=== PATIENT | female | born 1955 | race Caucasian/White ===

== ENCOUNTER → 2019-07-31 | Outpatient (CLI) | payer OTHER | LOC: RAD 13:11 | DX: R22.1 Localized swelling, mass and lump, neck (principal) ==

== ENCOUNTER → 2019-08-07 | Outpatient (CLI) | payer BC, OTHER ==
--- NOTE | 2019-08-21 16:07 | PATH ---
[facility] [place] [address] PATHOLOGY RPT PROCEDURE Name: BARBI HUNT Room #: REG [facility] M..#: [id number] Admission: 08/07/19 Date of : 59 Discharge: Report #: [id number] Path Case #: [id number] [facility] Accession Number: [id number] . 01 Material submitted: . neck - LEFT NECK MASS. Modifiers: left . 02 Diagnosis: Special studies report received from [facility], [address] [place] [address], [address], [place], [address], on case [id number], labeled with their number [id number], dated 08/13/2019. . Flow Cytometry: Hematologic Neoplasia Assessment . Clinical History Neck mass . Indication for Study Evaluation for hematolymphoid neoplasia . Specimen Tissue, Neck, mass . Viability 72% (7AAD exclusion) . Interpretation Tissue, Neck, mass: - No immunophenotypic evidence of a non Hodgkin B-cell or a T-cell lymphoma. See comments. - Increased T cells CD4:CD8 ratio (15.8:1) . Comments An elevated CD4:CD8 ratio is a nonspecific finding and has been reported in the literature to be associated with Hodgkin lymphoma (HL), some T-cell lymphoproliferative disorders and some reactive process. The morphologic findings are more relevant than the sole flow cytometric finding of an elevated CD4:CD8 ratio. Hodgkin lymphoma, some large cell lymphomas and some peripheral T-cell lymphomas cannot be categorically excluded by flow cytometric analysis. Correlation with available clinical, laboratory, and morphologic data is recommended. . Populations Analyzed . Lymphocytes: 66% B-cells: 23.6%, polytypic/polyclonal sIg light chain pattern T-cells: no significant abnormalities of the markers tested [address] [address] PATHOLOGY RPT PROCEDURE Name: BARBI HUNT Room #: REG [facility].#: [id number] Admission: 08/07/19 Date of : 59 Discharge: Report #: [id number] Path Case #: [id number] CD4:CD8: 15.8 (increased) NK cells: 1.0% CD45 Negative 34% No significant reactivity with the markers tested Events/Debris: (may represent non-hematolymphoid cells, degenerated cells, debris, unlysed red blood cells, etc.) . Morphologic Evaluation A slide was reviewed for manufacturing quality engineer purposes only. . Specimen Description Total Cell Yield: 0.57X10 6 . Reagent(s) Used CD2, CD3, CD4, CD5, CD7, CD8, CD10, CD11b, CD19, CD20, CD23, CD30, CD38, CD43, CD45, CD56, CD57, FMC-7, HLA-DR, kappa, lambda . at [facility] Giovany Lawrence MD Pathologist . Intended Use Flow cytometry is optimally used to immunophenotypically characterize abnormal populations when they are detected. Negative flow cytometry results do not exclude lymphoma or neoplasia. Possible false negative flow cytometry results may occur in, but are not limited to, the following: neoplastic cells in Hodgkin lymphoma are not typically adequately represented by routine clinical flow cytometry; neoplastic cells may be lost or inadequately represented due to degeneration, sample processing, sampling artifact, or patchy involvement; plasma cells are typically underrepresented by flow cytometry; immature cells/blasts may be underrepresented due to hemodilution; myeloproliferative disorders and low grade myelodysplasia may not have immunophenotypic abnormalities or increased blasts. Correlation with all available clinical, laboratory, and morphologic data is always necessary to assess for the possibility of false negative flow cytometry results and to establish a diagnosis. Each marker in this analysis was used to assess for potential antigenic abnormalities or to evaluate detected abnormalities. . Any image or images that accompany this report are administrative representative images only and should not be used to render a diagnosis. . Disclaimer(s) This test was developed and its performance characteristics determined by [facility] It has not been cleared or approved by the Food and Drug Administration. . Performing Labs [address] [address] PATHOLOGY RPT PROCEDURE Name: BARBI HUNT Room #: REG [facility].Daniel.#: [id number] Admission: 08/07/19 Date of : 59 Discharge: Report #: [id number] Path Case #: [id number] [facility] is a business unit of [facility] a wholly-owned subsidiary of [employer]. . This test was performed at [facility]. at [address], [place], [address] - Financial Coach: Arturo Koenig MD. . For inquiries, the physician may contact Lab: [phone] . A complete copy of the report is on file. . Professional services performed by [facility]. at [address], [place] [address]. Technical services performed by [facility]. at [address], [place] [address]. . AMANDA: 08/13/2019 QMS 08/13/2019 1421 Local . 02 Addendum: . Subsequent to speaking with .Belgica Moore, the residual specimen is requested from [facility]. . The RPMI tube is received back from [facility] containing a minimal amount of fluid. Tissue is not grossly identified within the specimen container. The contents are spun down and filtered and submitted entirely in cassette A1. Due to the nature of the specimen, it may not survive processing. (CAA; 08/20/2019) . . Tissue designated as left neck mass, biopsy: - No tissue present for examination. (IUV:mule rider; 08/21/2019) MBR/08/21/2019 Addendum Electronically Signed by Bijal Mallory MD, Pathologist . 02 Electronically signed: . Bijal Mallory MD, Pathologist NPI- [id number] . 02 Pathologist provided ICD-10: R22.1 . 02 CPT . 211462 Performed at: 01 [facility] [address] [place] [address] PATHOLOGY RPT PROCEDURE Name: BARBI HUNT Room #: REG [facility] M.R.#: [id number] Admission: 08/07/19 Date of : 59 Discharge: Report #: [id number] Path Case #: [id number] [facility] [address], [place], [place] [id number] MD Taiwo Murillo MD Phone: [phone] Performed at: 02 [facility] [address] [facility], [place], [place] [id number] MD Bijal Mallory MD Phone: [phone]
== END | disposition home or self-care (01) ==
LOC: ULTRA 09:09
PROVIDERS: ATTEND Nurse Practitioner
DX: K11.8 Other diseases of salivary glands (principal)